=== PATIENT | male | born 1950 | race American Indian/Alaskan Native ===

== ENCOUNTER 2017-04-23 08:20 | Outpatient (CLI) | payer MEDICARE ==
--- NOTE | 2017-04-23 08:43 | XRay Report ---
XRAY LEFT KNEE 4 THREE VIEWS: 04/23/17 CLINICAL: Left knee pain. FINDINGS: No fracture or dislocation. Osteoarthritis with loss of the medial joint space and narrowing of the lateral joint space. Medial and lateral osteophytes. Patellofemoral joint osteoarthritis with large superior and inferior osteophytes.No joint effusion.Normal soft tissues. IMPRESSION: Moderately severe osteoarthritis.
== END 2017-04-23 08:21 | disposition home or self-care (01) ==
LOC: SPVIMAG 08:20
PROVIDERS: ATTEND Orthopaedic Surgery
DX: M17.12 Unilateral primary osteoarthritis, left knee (principal)